=== PATIENT | male | born 1980 ===

== ENCOUNTER 2017-03-11 14:16 | Emergency (ER) | payer BC ==
--- NOTE | 2017-03-17 11:01 | ER ---
ADMIT: 03/11/2017 RM/LOC: ER [facility] MR#: [id number] [id number] [id number] JESSICA LEBLANC, [facility] [address] [place] [address] Emergency Room Report SEX: M AGE: 36 : 1980 DATE: 03/11/2017 SUBJECTIVE: A 36-year-old male coming in after cutting the webbing between his thumb and his finger. This is about 2 cm, closed with 4 interrupted sutures. Keep clean and dry. Sutures out in 7 days. Keep covered at work. CONDITION ON DISCHARGE: Good. Gurvinder Serrano MD/ maría JOB #: [id number] CC: Gurvinder Serrano MD, Attending Physician Scott Galloway MD, Family Physician
== END 2017-03-11 15:35 | disposition home or self-care (01) ==
LOC: ER 14:16
DX: S61.411A Laceration without foreign body of right hand, initial encounter (principal)